=== PATIENT | female | born 1955 | race African-American/Black ===

== ENCOUNTER 2017-01-31 09:36 | Emergency (ER) | payer MEDICAID ==
[~2017-01-31] VITALS: Ht 152.4 cm; Wt 45.0 kg
[2017-01-31 10:30] VITALS: BP 117/70
== END 2017-01-31 15:40 | disposition home or self-care (01) ==
LOC: ER 09:36
DX: J06.9 Acute upper respiratory infection, unspecified (principal)
CPT/HCPCS: 99283

== ENCOUNTER 2017-04-02 09:53 | Emergency (ER) | payer MEDICAID ==
[~2017-04-02] VITALS: Ht 165.1 cm; Wt 45.0 kg
[2017-04-02 10:53] LABS: BASOPHILS % 0.5 % (0.0-2.0); EOSINOPHILS % 4.2 % (0.0-5.0); HEMATOCRIT. 37.5 % (36.0-48.0); HEMOGLOBIN. 12.4 g/dL (12.0-16.0); LYMPHOCYTES % 13.8 % (20.0-50.0); MEAN CORPUSCULAR HEMOGLOBIN 26.9 pg (28.0-32.0); MEAN CORPUSCULAR VOLUME 81.1 fL (81.0-99.0); MEAN PLATELET VOLUME 7.5 fl (7.4-10.4); MONOCYTES % 8.4 % (2.0-8.0); NEUTROPHILS % 73.1 % (40.0-76.0); PLATELET 201 x1000/uL (130-400); RED BLOOD CELL COUNT 4.62 mill/uL (4.2-5.4); RED CELL DISTRIBUTION WIDTH 14.6 % (11.6-14.6)
[2017-04-02 11:06] LABS: CARBON DIOXIDE 30 mEq/L (21-32); CHLORIDE 106 mEq/L (98-107)
[2017-04-02 11:08] LABS: CREATINE KINASE 183 IU/L (26-192)
[2017-04-02 11:09] LABS: TROPONIN I < 0.02 ng/mL (0.00-0.04)
[2017-04-02 11:12] LABS: PROTHROMBIN TIME 10.3 sec (9.4-11.6)
[2017-04-02 11:14] LABS: CREATINE KINASE MB FRACTION 1.4 ng/mL (0.5-3.6)
[2017-04-02 11:55] VITALS: BP 109/77
== END 2017-04-02 12:27 | disposition home or self-care (01) ==
LOC: ER 12:27
DX: J20.9 Acute bronchitis, unspecified (principal)
CPT/HCPCS: 36415; 71010; 80053; 82550; 82553; 83690; 83880; 84443; 84484; 85025; 85610; 85730; 93005; 99285

== ENCOUNTER 2017-08-01 12:58 | Emergency (ER) | payer MEDICAID ==
[~2017-08-01] VITALS: Ht 154.9 cm; Wt 46.0 kg
[2017-08-01 15:09] LABS: BASOPHILS % 0.4 % (0.0-2.0); EOSINOPHILS % 2.2 % (0.0-5.0); HEMATOCRIT. 36.7 % (36.0-48.0); HEMOGLOBIN. 11.9 g/dL (12.0-16.0); LYMPHOCYTES % 35.4 % (20.0-50.0); MEAN CORPUSCULAR HEMOGLOBIN 26.3 pg (28.0-32.0); MEAN CORPUSCULAR VOLUME 81.1 fL (81.0-99.0); MEAN PLATELET VOLUME 7.5 fl (7.4-10.4); MONOCYTES % 9.9 % (2.0-8.0); NEUTROPHILS % 52.1 % (40.0-76.0); PLATELET 250 x1000/uL (130-400); RED BLOOD CELL COUNT 4.53 mill/uL (4.2-5.4); RED CELL DISTRIBUTION WIDTH 15.3 % (11.6-14.6)
[2017-08-01 15:17] LABS: PROTHROMBIN TIME 10.2 sec (9.4-11.6)
[2017-08-01 15:27] LABS: CHLORIDE 103 mEq/L (98-107); TROPONIN I < 0.02 ng/mL (0.00-0.04)
[2017-08-01 16:20] VITALS: BP 126/70
== END 2017-08-01 16:40 | disposition home or self-care (01) ==
LOC: ER 12:58
DX: R06.02 Shortness of breath (principal)
CPT/HCPCS: 36415; 71045; 80053; 83880; 84484; 85025; 85610; 93005; 99285

== ENCOUNTER 2020-04-02 09:31 | Emergency (ER) | payer MEDICAID ==
[~2020-04-02] VITALS: Ht 154.9 cm; Wt 46.0 kg
[2020-04-02] MEDS ORDERED: KETOROLAC 30MG/ML VIAL IM ONE (10:00)
[2020-04-02 10:59] VITALS: BP 122/78
== END 2020-04-02 11:01 | disposition home or self-care (01) ==
LOC: ER 09:31
DX: S62.112A Displaced fracture of triquetrum [cuneiform] bone, left wrist, initial encounter for closed fracture (principal); V00.121A Fall from non-in-line roller-skates, initial encounter; Y93.51 Activity, roller skating (inline) and skateboarding; Y92.89 Other specified places as the place of occurrence of the external cause
CPT/HCPCS: 29125; 73080; 73110; 73130; 96372; 99284; J1885

== ENCOUNTER 2020-11-29 09:56 | Emergency (ER) | payer MEDICARE, MEDICAID ==
[~2020-11-29] VITALS: Ht 154.9 cm; Wt 45.0 kg
[2020-11-29] MEDS ORDERED: ONDANSETRON HCL 4MG/2ML INJ IV STA (10:29)
[2020-11-29] MEDS ORDERED: MORPHINE SULFATE 4 MG/ML CPJ (NOT FOR IM USE) IV STA (10:29)
[2020-11-29] MEDS ORDERED: SODIUM CHLORIDE 0.9% 1,000 ML IV ONE (10:30)
[2020-11-29 11:08] LABS: BASOPHILS % 0.5 % (0.0-2.0); EOSINOPHILS % 2.4 % (0.0-5.0); HEMATOCRIT. 36.5 % (36.0-48.0); HEMOGLOBIN. 12.4 g/dL (12.0-16.0); LYMPHOCYTES % 28.6 % (20.0-50.0); MEAN CORPUSCULAR HEMOGLOBIN 27.3 pg (28.0-32.0); MEAN CORPUSCULAR VOLUME 80.6 fL (81.0-99.0); MEAN PLATELET VOLUME 7.5 fl (7.4-10.4); MONOCYTES % 10.1 % (2.0-8.0); NEUTROPHILS % 58.4 % (40.0-76.0); PLATELET 276 x1000/uL (130-400); RED BLOOD CELL COUNT 4.53 mill/uL (4.2-5.4); RED CELL DISTRIBUTION WIDTH 14.3 % (11.6-14.6)
[2020-11-29 11:14] LABS: CHLORIDE 105 mEq/L (98-107)
[2020-11-29 11:21] LABS: CLARITY URINE CLEAR (CLEAR); COLOR URINE YELLOW (YELLOW); KETONES URINE NEGATIVE (NEGATIVE); LEUKOCYTE ESTERASE URINE NEGATIVE (NEGATIVE); NITRITE URINE POSITIVE (NEGATIVE); OCCULT BLOOD URINE NEGATIVE (NEGATIVE); PH URINE 8.5 (4.5-8.0); PROTEIN URINE NEGATIVE (NEGATIVE); SPECIFIC GRAVITY URINE 1.015 (1.005-1.030)
[2020-11-29] MEDS ORDERED: IOHEXOL-300 100 ML BOTTLE ONE (13:19)
[2020-11-29] MEDS ORDERED: IBUP-2028 MT (14:19)
[2020-11-29 14:20] VITALS: BP 119/69
== END 2020-11-29 14:44 | disposition home or self-care (01) ==
LOC: ER 09:56
DX: R10.31 Right lower quadrant pain (principal)
CPT/HCPCS: 36415; 71045; 74177; 80053; 81003; 83690; 85025; 93005; 93971; 96361; 96374; 96375; 99285; J2270; J2405; J7030; Q9967